=== PATIENT | male | born 1980 | race Caucasian/White ===

== ENCOUNTER → 2021-02-22 | Outpatient (CLI) | payer OTHER ==
--- NOTE | 2021-02-22 16:02 | RAD ---
AP and Lateral Views of the Chest 02/22/2021 3:45 PM Indication: Reason: COUGH. SHORTNESS OF BREATH. HX OF COVID-19 / Spl. Comparison: None Findings: There is no focal consolidation or infiltrate identified. The cardiomediastinal silhouette is within normal limits. There is no evidence of pneumothorax or pleural effusion. No acute osseous a bnormalities are identified. Impression: No evidence of acute cardiopulmonary process. Electronically signed by: Cameron Elizondo MD (02/22/2021 4:00 PM) [id number]
== END ==
LOC: RAD 15:26
PROVIDERS: ATTEND Physician Assistant
DX: R05.9 Cough, unspecified (principal); R06.02 Shortness of breath; Z86.16 Personal history of COVID-19
CPT/HCPCS: 71046